=== PATIENT | male | born 1990 | race Caucasian/White ===

== ENCOUNTER 2016-11-12 20:24 | Emergency (ER) | payer OTHER, BC ==
[~2016-11-12] VITALS: Ht 177.8 cm; Wt 157.7 kg
[~2016-11-12 20:24] MED LIST: SUCR1TAB20 PO; [UNRECOGNIZED DRUG - REMARK]
--- OUTSIDE RECORDS SUMMARY | 2016-11-12 20:27 | XMS REPORT | Continuity of Care Document ---
Author Author [facility] Organization [facility] Address Unknown Phone Unavailable Allergies Active Description Code Type Severity Reaction Onset Reported/Identified Relationship to Patient Clinical Status Yes No Known Medication Allergies NKMA N/A N/A Medications Problems Procedures Results Encounters ACCT No. Visit Date/Time Discharge Status Pt. Type Provider Facility Loc./Unit Complaint [id number] 01/05/2015 14:53:00 2014 23:59:00 DIS Outpatient Pillo Johnson [facility] LOWER BACK PAIN
--- OUTSIDE RECORDS SUMMARY | 2016-11-12 20:27 | XMS REPORT | Continuity of Care Document ---
Author Author [facility] Organization [facility] Address Unknown Phone Unavailable Support Name Relationship Address Phone MAYA BRITO DO Caregiver [facility] [address] [place] [address] KATIE BONILLA Next Of Kin [address] [place] [address] Insurance Providers Payer Name Policy Number Subscriber Name Relationship First [facility] [id number] Julian Skaggs 18 Self Advance Directives Directive Response Recorded Date/Time Advanced Directives Type None 06/23/14 12:15pm Problems Medical Problems Problem Onset Date Status Gastritis Unknown Active Medications Medication Dose Route Sig Days/Qty Instructions Order Date Discontinued Date Status Sucralfate 1 G PO BEFORE MEALS AND AT BEDTIME 14 Days Take 1 tablet, by mouth, 4 times a day (Before EACH meal and 06/23/14 06/23/14 Discontinued Sucralfate 1 G PO BEFORE MEALS AND AT BEDTIME 14 Days EACH meal and 12/30 Active ["No Routine Meds"] 06/23/14 Active Social History Social History Problem Response Recorded Date/Time Hx Alcohol Use Y 3-5 BEERS X 1 WEEK 06/23/2014 12:15pm Query Response Start Date Stop Date Smoking Status Current every day smoker Hospital Discharge Instructions No hospital discharge instructions. Plan of Care No plan of care. Functional Status Query Response Date Recorded Physical Hygiene Self June 23, 2014 12:15pm Disabilities None June 23, 2014 12:15pm Devices Used None June 23, 2014 12:15pm Dressing Self June 23, 2014 12:15pm Ambulation Self June 23, 2014 12:15pm Diet Self June 23, 2014 12:15pm Mental Status Alert Oriented June 23, 2014 12:15pm Disabilities None June 23, 2014 12:15pm Devices Used None June 23, 2014 12:15pm Physical Hygiene Self June 23, 2014 12:15pm Dressing Self June 23, 2014 12:15pm Ambulation Self June 23, 2014 12:15pm Diet Self June 23, 2014 12:15pm Allergies, Adverse Reactions, Alerts Allergen Type Severity Reaction Status Last Updated No Known Allergies Active 06/23/14 Immunizations No immunization records. Vital Signs Acute Vital Signs Vital Response Date/Time Temperature (Fahrenheit) 98.2 deg F (96.8 - 99.1) Temperature (Calculated Celsius) 36.92616 degrees C (36.0 - 37.3) Pulse Rate (adult) 94 bpm (60 - 100) Respiratory Rate 18 breaths/min (10 - 20) O2 Sat by Pulse Oximetry 97 % (90 - 100) Blood Pressure 178/82 mm Hg Height 5 ft 9 in Weight 443 lb Body Mass Index 65.0 kg/m^2 Results Test Source Date Result Interp. Ref. Range Comments Alanine Aminotransferase (ALT/SGPT) June 23, 2014 12:41pm 33 U/L N 21-72 Albumin June 23, 2014 12:41pm 4.3 G/DL N 3.5-5.0 Albumin/Globulin Ratio June 23, 2014 12:41pm 1.2 RATIO N 1.1-2.2 Alkaline Phosphatase June 23, 2014 12:41pm 91 U/L N 38-126 Amylase Level June 23, 2014 12:41pm 49 U/L N 30-110 Anion Gap June 23, 2014 12:41pm 13 MEQ/L N 5-15 Aspartate Amino Transf (AST/SGOT) June 23, 2014 12:41pm 26 U/L N 17- 59 BUN/Creatinine Ratio June 23, 2014 12:41pm 20 RATIO N 6-26 Band Neutrophils # June 23, 2014 12:41pm 0.1 T/MM3 - Band Neutrophils % June 23, 2014 12:41pm 1.0 % N 0-6 Blood Urea Nitrogen June 23, 2014 12:41pm 14.0 MG/DL N 9-20 Calcium Level June 23, 2014 12:41pm 9.6 MG/DL N 8.4-10.2 Calculated Osmolality June 23, 2014 12:41pm 283 MOSM/KG H 261-280 Carbon Dioxide Level June 23, 2014 12:41pm 28 MEQ/L N 22-30 Chloride Level June 23, 2014 12:41pm 105 MEQ/L N 98-107 Creatinine June 23, 2014 12:41pm 0.7 MG/DL L 0.8-1.5 Eosinophils # (Manual) June 23, 2014 12:41pm 0.1 T/MM3 N 0-0.5 Eosinophils % (Manual) June 23, 2014 12:41pm 1.0 % N 0-4 Globulin June 23, 2014 12:41pm 3.5 G/DL N 2.4-3.6 Glucose Level June 23, 2014 12:41pm 112 MG/DL H 75-110 Hematocrit June 23, 2014 12:41pm 46.0 % N 41-53 Hemoglobin June 23, 2014 12:41pm 14.7 GM/DL N 13.5-17.5 Lipase June 23, 2014 12:41pm 93 U/L N 23-300 Lymphocytes # (Manual) June 23, 2014 12:41pm 3.7 T/MM3 N 1-4.8 Lymphocytes % (Manual) June 23, 2014 12:41pm 46.0 % H 23-45 Mean Corpuscular Hemoglobin June 23, 2014 12:41pm 25.4 UUG L 26-34 Mean Corpuscular Hemoglobin Concent June 23, 2014 12:41pm 32.0 GM/DL N 31-37 Mean Corpuscular Volume June 23, 2014 12:41pm 79.6 UM3 L 80-100 Mean Platelet Volume June 23, 2014 12:41pm 9.6 UM3 N 9.4-12.4 Monocytes # (Manual) June 23, 2014 12:41pm 0.5 T/MM3 N 0-0.8 Monocytes % (Manual) June 23, 2014 12:41pm 6.0 % N 0-9.0 Neutrophils # (Manual) June 23, 2014 12:41pm 3.7 T/MM3 N 1.8-7.7 Neutrophils % (Manual) June 23, 2014 12:41pm 46.0 % N 33-66 Platelet Count June 23, 2014 12:41pm 297 T/MM3 N 130-400 Potassium Level June 23, 2014 12:41pm 4.2 MEQ/L N 3.6-5 RDW Standard Deviation June 23, 2014 12:41pm 40.5 FL N 36.9-50.2 Red Blood Count June 23, 2014 12:41pm 5.78 M/MM3 N 4.50-5.90 Sodium Level June 23, 2014 12:41pm 146 MEQ/L H 134-144 Total Bilirubin June 23, 2014 12:41pm 0.90 MG/DL N 0.20-1.30 Total Protein June 23, 2014 12:41pm 7.8 G/DL N 6.3-8.2 White Blood Count June 23, 2014 12:41pm 8.1 T/MM3 N 4.5-11.0 Chemistry Specimen Hemolysis June 23, 2014 12:41pm < 15 0-25 0-25 : No Hemolysis.26-70: Slight Hemolysis - can falsely elevate K and Urine Protein. 71-285: Moderate Hemolysis - can falsely elevate K, Troponin I, CA 19-9, PTH, CSF GLucose, and Urine Protein, and can falsely decrease Phenytoin. 286-999: Gross Hemolysis - can falsely elevate K, Troponin I, CA 19-9, PTH, CSF Glucose, and Urine Protine, and can falsely decrease Phenytoin. Recommend specimen recollection. Turbidity June 23, 2014 12:41pm < 20 0-20 Glomerular Filtration Rate Calc June 23, 2014 12:41pm 140 - Icterus Index June 23, 2014 12:41pm < 2 0-7 Procedures No known history of procedures. Encounters Encounter Location Date/Time Departed Emergency Room [facility] 06/23/14 11:51am Recent Diagnosis
--- OUTSIDE RECORDS SUMMARY | 2016-11-12 20:27 | XMS REPORT | Referral Summary ---
Author Author [facility] Organization [facility] Address Unknown Phone Unavailable Encounter VC IALN [id number] Date(s): 01/05/15 - 01/05/15 [facility] [address] [place] [address] [facility] Discharge Diagnosis: Low back pain Discharge Diagnosis: BP (high blood pressure) Discharge Disposition: 01-Home or Self Care Attending Physician: Pillo Johnson Attending Physician: Provider, Immediate Care Admitting Physician: Provider, Immediate Care Vital Signs Most recent to 1 oldest [Reference Range]: Peripheral Pulse 84 bpm Rate [60-100 bpm] (01/05/15 3:01 PM) Respiratory Rate 20 br/min [14-20 br/min] (01/05/15 3:01 PM) Blood Pressure 185/123 mmHg [90-140/60-90 mmHg] *HI* (01/05/15 3:01 PM) SpO2 96 % (01/05/15 3:01 PM) Problem List Condition Effective Dates Status Health Status Informant Morbid Active patient obesity(Confirmed) Tobacco Active patient user(Confirmed) Allergies, Adverse Reactions, Alerts No Known Medication Allergies Medications No Known Medications Results No data available for this section Immunizations No data available for this section Procedures No data available for this section Social History Social History Type Response Smoking Status Current some day smoker; Type: Cigarettes1 13-4 a week Assessment and Plan Extracted from: Title: Office Visit Note Author: Pillo Johnson Date: 01/07/15 Assessment/Plan BP (high blood pressure) Patient advised to do blood pressure diary. Reduce salt intake. Exercise and diet is recommended. He given brochure for PCP to follow-up next week. Ordered: Office Visit Level 3 New [id number] Low back pain Prescription for Flexeril and Mason 5/325 mg as needed for the discomfort. inform patient that the medication might cause drowsiness. Advise ice or heating pad as needed for discomfort. Reduce weight bearing. Patient is given note to be off work2 days and return to work on Wednesday. Ordered: Office Visit Level 3 New [id number]
[2016-11-12 20:30] VITALS: Ht 177.8 cm; Wt 157.7 kg
[2016-11-12] MEDS ORDERED: NO ROUTINE MEDS (20:43)
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
[2016-11-12 21:20] VITALS: BP 143/65; PULSE 97; RESP 20; TEMP 98.4; O2SAT 98
--- NOTE | 2016-11-12 21:20 | NUR ---
DEPART PT IS GIVEN INSTRUCTIONS WITH VERBAL UNDERSTANDING. HE WILL FOLLOW UP WITH HR AT THE [facility] FOR LAB RESULTS. PT IS AMBULATORY TO ED EXIT
--- OUTSIDE RECORDS SUMMARY | 2016-11-12 21:20 | XMS REPORT | Continuity of Care Document ---
Author Author [facility] Organization [facility] Address Unknown Phone Unavailable Support Name Relationship Address Phone MAYA BRITO DO Caregiver [facility] [address] [place] [address] KATIE BONILLA Next Of Kin [address] [place] [address] Insurance Providers Payer Name Policy Number Subscriber Name Relationship First [facility] [id number] Julian Skaggs 18 Self Advance Directives Directive [...] F (96.8 - 99.1) Temperature (Calculated Celsius) 36.47587 degrees C (36.0 - 37.3) Pulse Rate [...] Encounters Encounter Location Date/Time Departed Emergency Room [facility] 06/23/14 11:51am Recent Diagnosis
--- OUTSIDE RECORDS SUMMARY | 2016-11-12 21:20 | XMS REPORT | Continuity of Care Document ---
Author Author [facility] Organization [facility] Address Unknown Phone Unavailable Allergies Active Description Code Type Severity Reaction Onset Reported/Identified Relationship to Patient Clinical Status Yes No Known Medication Allergies NKMA N/A N/A Medications Problems Procedures Results Encounters ACCT No. Visit Date/Time Discharge Status Pt. Type Provider Facility Loc./Unit Complaint [id number] 01/05/2015 14:53:00 2014 23:59:00 DIS Outpatient Pillo Johnson [facility] LOWER BACK PAIN
== END 2016-11-12 21:20 | disposition home or self-care (01) ==
LOC: ED 20:24
DX: Z77.21 Contact with and (suspected) exposure to potentially hazardous body fluids (principal)
CPT/HCPCS: 36415; 86703; 86803; 87340